=== PATIENT | female | born 1995 | race Caucasian/White ===

== ENCOUNTER 2016-09-15 17:26 | Emergency (ER) | payer OTHER ==
[~2016-09-15] VITALS: Ht 172.7 cm; Wt 62.3 kg
[~2016-09-15 17:26] MED LIST: CETIRIZINE HCL10 M2 PO; DIFLUCAN150 MG PO; DOXYCYCLINE HY100 MG PO; FLUCONAZOLE150 MG PO; METADATE CD60 MG PO; MOBIC15 MG PO; MOTRIN600 MG PO; NAPROSYN375 MG PO; OCELLA TABLET1 EACH PO; OXCARBAZEPINE600 MG PO; PERCOCET 5/31 TABLET PO; TRILEPTAL150 MG PO; VALACYCLOVIR1000 MG PO; ZOLOFT100 MG PO
[2016-09-15] MEDS ORDERED: LAMOTRIGINE100 MG PO (17:54)
[2016-09-15] MEDS ORDERED: SERTRALINE HCL100 MG PO (17:56)
[2016-09-15 18:19] LABS: HEMATOCRIT 42.9 % (36.0-46.0); MCH 29.4 PG (29.0-34.0); MCHC 34.3 G/DL (30.0-36.0); MCV 85.8 FL (83-99); RBC DIS.WIDTH-CV 12.3 % (11.8-14.6); RBC DIS.WIDTH-SD 38.5 % (39-53); WHITE BLOOD COUNT 9.1 K/uL (4.1-10.2)
[2016-09-15 18:27] LABS: CHLORIDE 105 mEq/L (99-109); SODIUM 136 mEq/L (136-147)
[2016-09-15 18:30] LABS: GLUCOSE 112 mg/dL (70-99)
[2016-09-15 18:31] LABS: ANION GAP 10 MEQ/L (2-14)
[2016-09-15 18:32] LABS: TOTAL BILIRUBIN 0.6 mg/dL (0.0-1.0)
[2016-09-15 18:33] LABS: ALKALINE PHOSPHATASE 46 IU/L (3-129); GFR ESTIMATE (CALCULATED) > 59 mL/min/
[2016-09-15 18:34] LABS: UREA NITROGEN (BUN) 9 mg/dL (9-23)
[2016-09-15 18:36] LABS: ADD MIUA? YES; BILIRUBIN NEGATIVE; BLOOD NEGATIVE; COLOR YELLOW ((YELLOW)); GLUCOSE (STRIP) NEGATIVE; KETONES NEGATIVE; LEUKOCYTES NEGATIVE; NITRITE NEGATIVE; PROTEIN (STRIP) NEGATIVE; SPECIFIC GRAVITY 1.019 (1.000-1.030)
[2016-09-15 18:37] LABS: BACTERIA NONE SEEN /HPF; EPITHELIAL CELLS RARE /HPF; MUCUS TRACE /LPF; RED BLOOD CELLS 0-5 /HPF (0-5); UCUL ADDED? NO; WHITE BLOOD CELLS 0-5 /HPF (0-5)
[2016-09-15 18:43] LABS: QUANTITATIVE HCG < 4.0 MIU/ML
[2016-09-15 19:03] LABS: PLAT.SUFFICIENCY ADEQUATE; PLATELET CLUMPS PRESENT - PLATELET COUNT APPEARS ADQ.; PLATELET COUNT UNABLE TO REPORT K/uL (156-360)
[2016-09-15] MEDS ORDERED: ZOFRAN4 MG PO (21:25)
[2016-09-15] MEDS ORDERED: VICODIN 5-3001 EACH PO (21:25)
[2016-09-15 22:01] VITALS: BP 120/66
== END 2016-09-15 22:00 | disposition home or self-care (01) ==
LOC: EME 17:26 → EXP 17:26
DX: R10.30 Lower abdominal pain, unspecified (principal); R11.2 Nausea with vomiting, unspecified; O03.9 Complete or unspecified spontaneous abortion without complication; Z72.0 Tobacco use
CPT/HCPCS: 74177; 76856; 80053; 81003; 84702; 85027; 99281; 99285; J2550; J7030

== ENCOUNTER 2016-09-20 19:37 | Inpatient (IN) | payer OTHER ==
[~2016-09-20] VITALS: Ht 182.9 cm; Wt 61.4 kg
[~2016-09-20 19:37] MED LIST changes: +LAMOTRIGINE100 MG PO; +SERTRALINE HCL100 MG PO; +VICODIN 5-3001 EACH PO; +ZOFRAN4 MG PO
[2016-09-20 21:04] LABS: BASOPHIL COUNT 0.1 K/uL (0-0.1); EOSINOPHIL (%) 0.1 % (0-5); HEMATOCRIT 43.6 % (36.0-46.0); IMMATURE GRANULOCYTE (%) 0.5 % (0.0-0.7); IMMATURE GRANULOCYTE COUNT 0.1 K/uL; INSTRUMENT ABS NEUTROPHIL CT 11.8 K/uL; LYMPHOCYTE COUNT 1.4 K/uL (1.0-2.8); MCH 28.5 PG (29.0-34.0); MCHC 33.3 G/DL (30.0-36.0); MCV 85.8 FL (83-99); MEAN PLAT.VOLUME 10.7 uM^3 (9.5-12.4); MONOCYTE COUNT 0.7 K/uL (0-0.8); NEUTROPHIL (%) 83.9 % (45-76); NEUTROPHIL COUNT 11.8 K/uL (1.8-6.4); PLATELET COUNT 302 K/uL (156-360); RBC DIS.WIDTH-CV 12.1 % (11.8-14.6); RBC DIS.WIDTH-SD 37.9 % (39-53); RED BLOOD COUNT 5.08 M/uL (3.80-5.20)
[2016-09-20] MEDS ORDERED: LORYNA 3 MG-0.1 EACH PO (21:11)
[2016-09-20] MEDS ORDERED: YAZ 28 TABLET1 EACH PO (21:11)
[2016-09-20] MEDS ORDERED: CONCERTA36 MG PO (21:11)
[2016-09-20] MEDS ORDERED: TRILEPTAL600 MG PO (21:11)
[2016-09-20] MEDS ORDERED: VALACYCLOVIR500 MG PO (21:12)
[2016-09-20 21:15] LABS: CHLORIDE 108 mEq/L (99-109); POTASSIUM 4.7 mEq/L (3.7-5.4); SODIUM 137 mEq/L (136-147)
[2016-09-20 21:16] LABS: WHITE BLOOD COUNT 14.1 K/uL (4.1-10.2)
[2016-09-20 21:17] LABS: GLUCOSE 94 mg/dL (70-99)
[2016-09-20 21:18] LABS: ANION GAP 13 MEQ/L (2-14)
[2016-09-20 21:19] LABS: TOTAL BILIRUBIN 0.5 mg/dL (0.0-1.0)
[2016-09-20 21:20] LABS: SERUM ETHYL ALCOHOL < 10 mg/dL
[2016-09-20 21:21] LABS: ALKALINE PHOSPHATASE 41 IU/L (3-129); GFR ESTIMATE (CALCULATED) > 59 mL/min/
[2016-09-20 21:22] LABS: UREA NITROGEN (BUN) 12 mg/dL (9-23)
[2016-09-20 21:31] LABS: QUANTITATIVE HCG < 4.0 MIU/ML
[2016-09-20 22:12] LABS: AMPHETAMINE NEGATIVE (500 ng/mL); BARBITURATES NEGATIVE (200 ng/mL); BENZODIAZEPINES NEGATIVE (150 ng/mL); COCAINE NEGATIVE (150 ng/mL); INTERNAL CONTROLS VALID? YES; METHADONE NEGATIVE (200 ng/mL); METHAMPHETAMINE NEGATIVE (500 ng/mL); OPIATES (MORPHINE) NEGATIVE (100 ng/mL); OXYCODONE NEGATIVE (100 ng/mL); PHENCYCLIDINE NEGATIVE (25 ng/mL); PROPOXYPHENE NEGATIVE (300 ng/mL); THC CANNABINOIDS NEGATIVE (50 ng/mL); TRICYCLIC ANTIDEPRESSANTS NEGATIVE (300 ng/mL)
[2016-09-20 22:26] VITALS: BP 120/72
[2016-09-20 22:28] VITALS: BP 120/72
[2016-09-21 07:51] VITALS: BP 108/58
[2016-09-21 15:25] VITALS: BP 112/69
[2016-09-22 07:37] VITALS: BP 115/57
[2016-09-22 11:14] VITALS: BP 135/88
== END 2016-09-22 12:05 | disposition home or self-care (01) | DRG 882 ==
LOC: EME 19:37 → EDOF 21:01 → 1WEST 21:01
PROVIDERS: Emergency Medicine
DX: F43.23 Adjustment disorder with mixed anxiety and depressed mood (principal); F32.9 Major depressive disorder, single episode, unspecified; R45.851 Suicidal ideations; F41.9 Anxiety disorder, unspecified; F98.8 Other specified behavioral and emotional disorders with onset usually occurring in childhood and adolescence
CPT/HCPCS: 80053; 84702; 85025; 87491; 87591; 90839; 99281; 99285; G0480

== ENCOUNTER 2017-04-22 11:46 | Emergency (ER) | payer OTHER ==
[~2017-04-22] VITALS: Ht 165.1 cm; Wt 63.5 kg
[~2017-04-22 11:46] MED LIST changes: +CONCERTA36 MG PO; +LORYNA 3 MG-0.1 EACH PO; +TRILEPTAL600 MG PO; +VALACYCLOVIR500 MG PO; +YAZ 28 TABLET1 EACH PO
[2017-04-22 13:43] VITALS: BP 117/75
== END 2017-04-22 13:48 | disposition home or self-care (01) ==
LOC: EME 11:46
DX: S60.222A Contusion of left hand, initial encounter (principal); W23.0XXA Caught, crushed, jammed, or pinched between moving objects, initial encounter; Z72.0 Tobacco use
CPT/HCPCS: 73130; 99281; 99284

== ENCOUNTER 2017-05-07 23:01 | Emergency (ER) | payer OTHER ==
[~2017-05-07] VITALS: Ht 172.7 cm; Wt 65.2 kg
[2017-05-08 00:35] VITALS: BP 121/62
== END 2017-05-08 00:35 | disposition home or self-care (01) ==
LOC: EME 23:01
DX: S60.221A Contusion of right hand, initial encounter (principal); W22.09XA Striking against other stationary object, initial encounter; Z72.0 Tobacco use
CPT/HCPCS: 73130; 99281; 99283

== ENCOUNTER 2017-06-20 00:40 | Emergency (ER) | payer OTHER ==
[~2017-06-20] VITALS: Ht 162.6 cm; Wt 63.6 kg
[2017-06-20 01:17] LABS: HEMATOCRIT 41.6 % (36.0-46.0); HEMOGLOBIN 14.4 G/DL (11.9-15.5); MCH 29.5 PG (29.0-34.0); MCHC 34.6 G/DL (30.0-36.0); MCV 85.2 FL (83-99); PLATELET COUNT 290 K/uL (156-360); RBC DIS.WIDTH-CV 12.9 % (11.8-14.6); RBC DIS.WIDTH-SD 39.6 % (39-53); RED BLOOD COUNT 4.88 M/uL (3.80-5.20); WHITE BLOOD COUNT 7.8 K/uL (4.1-10.2)
[2017-06-20 01:29] LABS: CHLORIDE 103 mEq/L (99-109); POTASSIUM 4.1 mEq/L (3.7-5.4); SODIUM 139 mEq/L (136-147)
[2017-06-20 01:31] LABS: GLUCOSE 83 mg/dL (70-99)
[2017-06-20 01:34] LABS: SERUM ETHYL ALCOHOL < 10 mg/dL
[2017-06-20 01:35] LABS: CREATININE 0.8 mg/dL (0.6-1.3); GFR ESTIMATE (CALCULATED) > 59 mL/min/
[2017-06-20 01:36] LABS: UREA NITROGEN (BUN) 13 mg/dL (9-23)
[2017-06-20 03:07] VITALS: BP 127/88
== END 2017-06-20 03:07 | disposition home or self-care (01) ==
LOC: EME → EDBD 00:40 → EME 00:40
PROVIDERS: Emergency Medicine Emergency Medical Services
DX: F31.32 Bipolar disorder, current episode depressed, moderate (principal); F12.90 Cannabis use, unspecified, uncomplicated; S61.512A Laceration without foreign body of left wrist, initial encounter; X78.9XXA Intentional self-harm by unspecified sharp object, initial encounter; F17.200 Nicotine dependence, unspecified, uncomplicated
CPT/HCPCS: 80048; 85027; 90837; 99281; 99285; G0480

== ENCOUNTER 2017-06-30 14:37 | Emergency (ER) | payer OTHER ==
[~2017-06-30] VITALS: Ht 167.6 cm; Wt 61.9 kg
[2017-06-30 15:16] LABS: SOURCE URINE
[2017-06-30 17:51] VITALS: BP 161/101
[2017-07-01 14:55] LABS: CHLAMYDIA TRACHOMATIS NEGATIVE; NEISSERIA GONORRHOEAE NEGATIVE
== END 2017-06-30 17:51 | disposition home or self-care (01) ==
LOC: EME 14:37
DX: Z11.3 Encounter for screening for infections with a predominantly sexual mode of transmission (principal)
CPT/HCPCS: 87491; 87591; 99281; 99283; J0696